=== PATIENT | female | born 1970 | race Caucasian/White ===

== ENCOUNTER 2018-09-05 23:57 | Emergency (ER) | payer OTHER, SELFPAY ==
[2018-09-05 23:59] VITALS: BP 176/81; PULSE 74; RESP 18; TEMP 36.4; O2SAT 100
--- NOTE | 2018-09-06 00:03 | DI.CT_ITS ---
SYMPTOM/DIAGNOSIS: LT SIDED FLANK PAIN, ? KIDNEY STONE VS PYELO RENAL COLIC CT: Routine examination was performed. Comparison is made with 01/07/17 and 12/27/16. The visualized lung bases are clear. The lack of IV contrast does limit evaluation of the abdominal and pelvic organs. There is diffuse decreased attenuation of the liver consistent with fatty infiltration. No discrete hepatic mass is seen on this noncontrast examination. There is focal fatty sparing in the gallbladder fossa. The gallbladder, bile ducts, pancreas, spleen and adrenal glands are unremarkable. The right kidney shows no evidence of nephrolithiasis, ureterolithiasis or hydronephrosis. There is a 5 mm. stone at the left ureterovesicular junction causing mild hydronephrosis. No left nephrolithiasis is seen. There is a cyst seen in the mid pole of the left kidney with tiny flecks of increased density. This is unchanged compared to the CT scans from 12/27/16 and 01/07/17. The urinary bladder is intact. The reproductive organs are unremarkable except for what appear to be uterine fibroids. There is diverticulosis of the colon but no evidence of acute diverticulitis. No evidence of bowel obstruction, inflammation or obstruction. There is a normal appendix present. Note is made of a 2.9 cm. left adnexal cyst, likely ovarian. The abdominal aorta is of normal caliber. No significant abdominal or pelvic adenopathy, ascites or pneumoperitoneum is present. Degenerative changes are seen in the spine. IMPRESSION: 5 mm. stone at the region of the left ureterovesicular junction causing mild hydronephrosis.
--- NOTE | 2018-09-06 00:06 | ED.GENADUL_ITS ---
Discharge Plan Disposition Patient Disposition: HOME Condition: Improving Discharge Details Chief Complaint: FlankPain Clinical Impression: Left nephrolithiasis Primary Care Provider: Shanel Morales ED Provider: Vanita Chapman Home Meds and New Rx's Prescriptions: New oxycodone 5 mg tablet 5 mg PO Q6H PRN (Reason: pain) Qty: 10 RF: 0 tamsulosin [Flomax] 0.4 mg capsule 0.4 mg PO DAILY 7 Days Qty: 7 RF: 0 Discharge Instructions Instructions: Kidney Stones (ED) Additional Instructions: Take the pain and nausea medication as needed and directed. Drink plenty of fluids. You will receive a call from care management regarding a follow-up appointment with urology Dr. Medrano. Return immediately to the emergency department any worsening or new concerning symptoms. Discharge Data Discharge Date/Time-TO BE ENTERED AT DEPARTURE: 09/06/18 01:40 Discharge Physician: Vanita Chapman Medical Decision Making 48-year-old female with a history of kidney stones and previous lithotripsy 10 years ago who presents with left flank pain and vomiting since 1 hour ago. Blood pressure hypertensive, remainder vitals within normal limits. Afebrile. No CVA tenderness. Abdomen soft and nontender. Patient appears nontoxic. Will place an IV, bolus IV fluids, labs, urinalysis, CT as well as Toradol and Zofran and will reassess. 0115 --labs and imaging reviewed. Normal white blood cell count renal function. Trace blood in urine but no evidence of infection. CT renal colic notes a 5 mm calculus in the left distal ureter at the level of the bladder producing mild hydronephrosis. Patient feels much better. She states Toradol helped much with her pain but now it is slightly returning to 2/10. Will give a dose of oxycodone and flomax. As patient is afebrile, normal white blood cell count, normal renal function and a 5 mm calculus, and pain is improved, patient is appropriate for discharge home and she does feel much better and is requesting to go home. Patient is followed by Dr. Medrano. Will place patient on care management list to arrange for a follow-up appointment with Dr. Medrano for reevaluation within the next week. 2 tabs of oxycodone and 2 tabs of Zofran given for home. Prescription for oxycodone and Flomax and strainer given for home. Patient was instructed to return here immediately if worse. Medical Records Medical records reviewed: Yes I reviewed the patient's medical records. Imaging Data Radiologic Study: Radiologist's impression: CT Abdomen and Pelvis Without Contrast EXAM DATE/TIME: 09/06/2018 12:06 AM FINDINGS: The lung bases are clear. There are degenerative changes of the spine. There is fatty infiltration of the liver. There is some focal fatty sparing about the gallbladder fossa. There is no liver mass. There is no intrahepatic biliary dilatation. No gallstones are seen within the gallbladder. The pancreas is unremarkable. The spleen is unremarkable. There is no adrenal mass. The right kidney is normal. The left kidney demonstrates mild hydronephrosis. There is a complex cyst within the midpole the left kidney with some peripheral calcification. No renal calculi are seen within the kidney. The left ureter is dilated. There is a 5 mm calculus in the distal ureter at the level of the bladder. The bladder is nondistended. The aorta is normal in caliber. The IVC is normal in caliber. There is no retroperitoneal adenopathy. There is no mesenteric adenopathy. The stomach is unremarkable. The small bowel loops in the upper abdomen are nondistended with no bowel wall thickening. Feces is seen throughout the colon. There is no thickening of the wall of the ascending, transverse or descending colons. There is scattered colonic diverticuli. Within the pelvis: A normal appendix is seen within the right lower quadrant. There appears to be a calcified uterine leiomyoma. There is a 2.9 cm left ovarian cyst. The right adnexa is unremarkable. There is no free fluid within the pelvis. There is no inguinal adenopathy. There is no pelvic adenopathy. There is sigmoid diverticulosis. IMPRESSION: 5 mm calculus in the left distal ureter at the level of the bladder producing mild hydronephrosis of the left kidney. Lab Data Lab results reviewed: Yes I reviewed the patient's lab results. Laboratory Tests Range/Units 09/06/18 09/06/18 09/06/18 00:01 00:01 00:04 WBC (4.4-10.8) k/cumm 10.29 RBC (4.00-5.20) m/cumm 4.88 Hgb (12.0-15.5) g/dL 14.1 Hct (36.0-46.0) % 41.7 MCV (80-95) fL 85.5 MCH (27.0-33.0) pg 28.9 MCHC (32.0-36.0) g/dL 33.8 RDW (11.7-14.6) % 13.4 Plt Count (130-400) x1000/uL 220 MPV (8.0-11.0) fL 10.4 Immature Gran % 0.3 Neutrophils % 47.8 Lymphocytes % 40.7 Monocytes % 9.6 Eosinophils % 1.4 Basophils % 0.2 Absolute Neutrophils (1.2-6.7) k/cumm 4.92 Absolute Lymphocytes (1.2-3.4) k/cumm 4.19 H Absolute Monocytes (0.11-0.7) k/cumm 0.99 H Absolute Eosinophils (0.0-0.7) k/cumm 0.14 Absolute Basophils (0.0-0.2) k/cumm 0.02 Sodium (136-145) mmol/L 145 Potassium (3.5-5.1) mmol/L 3.3 L Chloride (98-107) mmol/L 104 Carbon Dioxide (21.0-32.0) mmol/L 30.1 Anion Gap (3-11) mmol/L 10.9 BUN (7-18) mg/dL 11 Creatinine (0.55-1.02) mg/dL 0.74 Estimated GFR/1.73 m2 (mL/min/1.73m2) >= 60.00 Glucose (70-100) mg/dL 117 H Calcium (8.5-10.1) mg/dL 9.2 Total Bilirubin (0.2-1.0) mg/dL 0.3 AST (15-37) U/L 12 L ALT (12-78) U/L 29 Alkaline Phosphatase (46-116) U/L 110 Total Protein (6.4-8.2) g/dL 8.1 Albumin (3.4-5.0) g/dL 3.7 Lipase (73-393) U/L 136 Urine Color (Yellow) Yellow Urine Clarity Clear Urine pH (5-8) 7.5 Ur Specific [place] (1.005-1.025) 1.020 Urine Protein (Negative) mg/dL 100 H Urine Ketones (Negative) mg/dL Negative Urine Blood (Negative) Trace-intact H Urine Nitrite (Negative) Negative Urine Bilirubin (Negative) Negative Urine Urobilinogen (Up TO 0.2) EU/dL 1.0 H Ur Leukocyte Esterase (Negative) Negative Urine RBC (0-2) 0-2 Urine WBC (0-5) HPF 0-2 Ur Epithelial Cells (Negative) HPF Moderate Urine Crystals (Negative) HPF Moderate amorphous Urine Bacteria (Negative) HPF Negative Urine Casts (Negative) LPF Negative Urine Mucus (Negative) Negative Urine Other (Negative) Negative Ur Culture Indicated? No Urine Glucose (Negative) mg/dL 500 H HPI General Mode of arrival: ambulatory . Date/Time Provider Initiated Documentation: 09/06/18 00:03 . Limitations to Documentation: no limitations . Information obtained by: patient . HPI Narrative: Patient is a 48-year-old female with a history of kidney stones and previous lithotripsy 10 years ago who presents to the ED with a complaint of left flank pain and vomiting that started 1 hour ago prior to arrival. Denies any fever or urinary symptoms. Patient has not taken any medication for pain. Related Data Home Medications Medication Instructions Recorded Confirmed oxycodone 5 mg PO Q6H PRN #10 tab 09/06/18 tamsulosin [Flomax] 0.4 mg PO DAILY 7 Days #7 cap 09/06/18 Previous Rx's Medication Instructions Recorded oxycodone 5 mg PO Q6H PRN #10 tab 09/06/18 tamsulosin [Flomax] 0.4 mg PO DAILY 7 Days #7 cap 09/06/18 Allergies Allergy/AdvReac Type Severity Reaction Status Date / Time No Known Allergies Allergy Unverified 01/06/18 08:16 General Stated Complaint: FlankPain RY: 3 Review of Systems Review of Systems All systems reviewed & are unremarkable except as noted in HPI and below Constitutional Reports as per HPI, Denies chills and Denies fever(s) Eyes Denies blurry vision ENT Denies dizziness, Denies sore throat and Denies throat swelling Cardiovascular Denies chest pain and Denies dyspnea Respiratory Denies dyspnea Gastrointestinal Denies abdominal pain, Denies diarrhea and Reports vomiting Genitourinary Denies hematuria, Denies dysuria and Reports flank pain Musculoskeletal Denies back pain and Denies numbness Integumentary/Breasts Denies lesions and Denies rash Neurologic Denies dizziness and Denies numbness Allergic/Immunologic Denies throat swelling PFSH Diabetes (Chronic) Kidney stones (Chronic) Family History Mother Neoplasm Father Diabetes Essential hypertension Depression Heart disease Neoplasm Stroke Brother No problems noted. Grandfather No problems noted. Grandfather No problems noted. Grandmother No problems noted. Grandmother Essential hypertension Heart disease Stroke Son No problems noted. Son No problems noted. Daughter No problems noted. Hx of lithotripsy (Acute) HYSTERECTOMY (12/29/16) Family History Mother Neoplasm Father Diabetes Essential hypertension Depression Heart disease Neoplasm Stroke Brother No problems noted. Grandfather No problems noted. Grandfather No problems noted. Grandmother No problems noted. Grandmother Essential hypertension Heart disease Stroke Son No problems noted. Son No problems noted. Daughter No problems noted. Medical History Diabetes (Chronic) Kidney stones (Chronic) Social History Smoking/Tobacco Use Status: Former Tobacco Use Surgical History Hx of lithotripsy (Acute) HYSTERECTOMY (12/29/16) Social History Smoking/Tobacco Use Status: Former Tobacco Use Exam Const General: cooperative, healthy appearing and no acute distress [facility] Head: normal to inspection Face and sinus: normal facial exam Eyes General: appearance normal, both eyes and all related structures Neck Neck: normal visual inspection Lymphatic: no lymphadenopathy noted Resp Effort & Inspection: normal respiratory effort and able to speak in complete sentences Auscultation: clear to auscultation bilaterally Cardio Rate: regular rate Rhythm: regular rhythm GI Inspection: normal to inspection Palpation: soft, not firm, not rigid and nontender Auscultation: normal bowel sounds Back/Spine/Pelvis Back: no CVA tenderness Thoracic/Lumbar Spine: thoracic and lumbar spine normal to inspection Pelvis: no pain with anterior-posterior compression Skin General skin exam: no rashes or lesions noted Neuro General: alert, awake and oriented x3 Cognition: normal cognition Speech: speech normal Motor: muscle tone normal throughout Sensory Exam: no sensory deficits noted Extrem General: normal to inspection, full ROM and no edema Psych Appearance: grossly normal Mental Status: mental status grossly normal Speech and Movement: speech and movement normal Affect: normal affect Course Vital Signs Temperature 97.5 F L 09/05/18 23:59 Pulse 74 09/05/18 23:59 Respiratory Rate 18 09/05/18 23:59 Blood Pressure 176/81 H 09/05/18 23:59 Pulse Oximetry 100 09/05/18 23:59 Temperature 97.5 F L 09/05/18 23:59 Temperature Source Temporal Artery Scan 09/05/18 23:59 Pulse 74 09/05/18 23:59 Respiratory Rate 18 09/05/18 23:59 Respiratory Effort 09/05/18 23:59 Blood Pressure 176/81 H 09/05/18 23:59 Blood Pressure Position Sitting 09/05/18 23:59 Pulse Oximetry 100 09/05/18 23:59 Oxygen Delivery Method Room Air 09/05/18 23:59 Oxygen Flow Rate 0 09/05/18 23:59
[2018-09-06] MEDS: Ketorolac 30 MG/ML VIAL IVP (00:16)
[2018-09-06] MEDS: Normal Saline 1,000 ML 1000 ML IV (00:16)
[2018-09-06] MEDS: Ondansetron 4 MG/2 ML VIAL IVP (00:17)
[2018-09-06 00:18] LABS: Bilirubin Negative (Negative); Blood Trace-intact (Negative); Clarity Clear; Glucose 500 mg/dL (Negative); Ketones Negative (Negative); Leukocyte Esterase Negative (Negative); Nitrite Negative (Negative); pH 7.5 (5-8)
[2018-09-06 00:18] LABS: Abs Immature Grans 0.03 k/cumm (0.0-0.09); Absolute Basophil Count 0.02 k/cumm (0.0-0.2); Absolute Eosinophil Count 0.14 k/cumm (0.0-0.7); Absolute Lymphocyte Count 4.19 k/cumm (1.2-3.4); Absolute Monocyte Count 0.99 k/cumm (0.11-0.7); Absolute Neutrophil Count 4.92 k/cumm (1.2-6.7); Basophils % 0.2; Eosinophils % 1.4; HCT 41.7 % (36.0-46.0); HGB 14.1 g/dL (12.0-15.5); Immature Grans % 0.3; Lymphocytes % 40.7; Mean Corp. HGB Concentration 33.8 g/dL (32.0-36.0); Mean Corpuscular Hemoglobin 28.9 pg (27.0-33.0); Mean Corpuscular Volume 85.5 fL (80-95); Mean Platelet Volume 10.4 fL (8.0-11.0); Monocytes % 9.6; Neutrophils % 47.8; Platelet Count 220 x1000/uL (130-400); RBC 4.88 m/cumm (4.00-5.20); RBC Distribution Width 13.4 % (11.7-14.6); White Blood Cell Count 10.29 k/cumm (4.4-10.8)
[2018-09-06 00:25] LABS: Bacteria Negative HPF (Negative); Epithelial Cells Moderate HPF (Negative); Other Cells Negative (Negative); RBC 0-2 (0-2); WBC 0-2 HPF (0-5)
[2018-09-06 00:26] LABS: C & S Indicated? No; Casts Negative LPF (Negative); Crystals Moderate Amorphous HPF (Negative); Mucus Negative (Negative)
[2018-09-06 00:31] LABS: ALT 29 U/L (12-78); AST 12 U/L (15-37); Albumin 3.7 g/dL (3.4-5.0); Alkaline Phosphatase 110 U/L (46-116); Anion Gap 10.9 mmol/L (3-11); BUN 11 mg/dL (7-18); Bilirubin, Total 0.3 mg/dL (0.2-1.0); CO2 30.1 mmol/L (21.0-32.0); CREATININE 0.74 mg/dL (0.55-1.02); Calcium 9.2 mg/dL (8.5-10.1); Chloride 104 mmol/L (98-107); Glucose 117 mg/dL (70-100); Lipase 136 U/L (73-393); Potassium 3.3 mmol/L (3.5-5.1); Sodium 145 mmol/L (136-145); Total Protein 8.1 g/dL (6.4-8.2)
--- NOTE | 2018-09-06 01:00 | DI.VRAD_ITS ---
EXAM: CT Abdomen and Pelvis Without Contrast EXAM DATE/TIME: 09/06/2018 12:06 AM CLINICAL HISTORY: 48 years old, female; Pain; Other: Lt sided flank pain R/O kidney stone vs pyelo TECHNIQUE: Axial computed tomography images of the abdomen and pelvis without contrast. Coronal and sagittal reformatted images were created and reviewed. COMPARISON: CT ABD PELVIS WITH CONTRAST 01/07/2017 2:23 PM FINDINGS: The lung bases are clear. There are degenerative changes of the spine. There is fatty infiltration of the liver. There is some focal fatty sparing about the gallbladder fossa. There is no liver mass. There is no intrahepatic biliary dilatation. No gallstones are seen within the gallbladder. The pancreas is unremarkable. The spleen is unremarkable. There is no adrenal mass. The right kidney is normal. The left kidney demonstrates mild hydronephrosis. There is a complex cyst within the midpole the left kidney with some peripheral calcification. No renal calculi are seen within the kidney. The left ureter is dilated. There is a 5 mm calculus in the distal ureter at the level of the bladder. The bladder is nondistended. The aorta is normal in caliber. The IVC is normal in caliber. There is no retroperitoneal adenopathy. There is no mesenteric adenopathy. The stomach is unremarkable. The small bowel loops in the upper abdomen are nondistended with no bowel wall thickening. Feces is seen throughout the colon. There is no thickening of the wall of the ascending, transverse or descending colons. There is scattered colonic diverticuli. Within the pelvis: A normal appendix is seen within the right lower quadrant. There appears to be a calcified uterine leiomyoma. There is a 2.9 cm left ovarian cyst. The right adnexa is unremarkable. There is no free fluid within the pelvis. There is no inguinal adenopathy. There is no pelvic adenopathy. There is sigmoid diverticulosis. IMPRESSION: 5 mm calculus in the left distal ureter at the level of the bladder producing mild hydronephrosis of the left kidney. Dictated and Authenticated by: Brandon Cabrera MD. Ordering:ZOEY ABREU MD
[2018-09-06] MEDS: Tamsulosin 0.4 MG CAPCR PO (01:13)
[2018-09-06 01:15] VITALS: BP 170/71; PULSE 68; RESP 18; TEMP 37; O2SAT 100
[2018-09-06] MEDS: oxyCODONE 5 MG TAB PO (01:37)
[2018-09-06] MEDS: oxyCODONE 5 MG TAB 10 MG PO (01:37)
[2018-09-06] MEDS: Ondansetron O.D.T. 4 MG TABEF 8 MG PO (01:37)
== END 2018-09-06 01:40 | disposition home or self-care (01) ==
PROVIDERS: Emergency Provider Physician Assistant
DX: N13.2 Hydronephrosis with renal and ureteral calculous obstruction (principal); R11.2 Nausea with vomiting, unspecified; Z87.442 Personal history of urinary calculi; E11.9 Type 2 diabetes mellitus without complications
CPT/HCPCS: 36415; 80053; 83690; 96361; 96374; 96375; 99284; 74176; 81003; 81015; 85025; 99285; J1885; J2405

== ENCOUNTER 2018-09-27 16:55 | Outpatient (REF) | payer OTHER, SELFPAY ==
[2018-09-30 15:13] LABS: Source: Kidney
== END 2018-09-27 17:15 ==
LOC: LBN 16:55
PROVIDERS: Visit Provider Nurse Practitioner Gerontology
DX: N20.0 Calculus of kidney (principal)
CPT/HCPCS: 82365

== ENCOUNTER 2019-01-02 00:34 | Outpatient (CLI) | payer OTHER, SELFPAY ==
--- NOTE | 2019-01-02 14:15 | DI.US_ITS ---
SYMPTOMS/DIAGNOSIS: LEFT RENAL CYST, N28.1, KIDNEY STONE ON LEFT SIDE, N20.0 RENAL ULTRASOUND: Routine examination was performed. Comparison examination is 01/06/18. The right kidney measures 11.9 cm long. No renal mass, calculus or obstruction is seen. The left kidney measures 10.9 cm long. There is a cyst again seen in the left kidney. It measures 2.1 x 1.8 x 1.9 cm. This is unchanged compared to the prior examination. Internal septations are again noted and unchanged. No internal blood flow is appreciated. There is a 4 mm echogenic focus in the mid pole of the left kidney, which appears stable. No hydronephrosis is seen. The prevoid urinary bladder volume is 113 cc. The bladder wall is smooth. No intraluminal mass is seen. Both ureteral jets were visualized. The bladder completely emptied upon voiding. IMPRESSION: Stable left renal cyst and left renal echogenic focus, which may represent a nonobstructing stone. Overall no change in appearance of the renal ultrasound compared to 01/06/18.
== END 2019-01-02 00:54 ==
PROVIDERS: Visit Provider Urology
DX: N20.0 Calculus of kidney; N28.1 Cyst of kidney, acquired
CPT/HCPCS: 76770

== ENCOUNTER 2019-07-03 11:46 | Outpatient (CLI) | payer OTHER, SELFPAY ==
[2019-07-03 13:24] LABS: Hemoglobin A1C 6.1 % (4.5-6.2)
[2019-07-03 13:40] LABS: COMMENT (LAB VIEW ONLY) 100.16 mg/dL; Microalb ug/mg Crea 11.4 ug/mg Cr
[2019-07-03 15:06] LABS: ALT 30 U/L (14-59); AST 15 U/L (15-37); Alkaline Phosphatase 110 U/L (46-116); Anion Gap 11.2 mmol/L (3-11); BUN 13 mg/dL (7-18); Bilirubin, Total 0.4 mg/dL (0.2-1.0); CO2 27.8 mmol/L (21.0-32.0); CREATININE 0.73 mg/dL (0.55-1.02); Calcium 9.4 mg/dL (8.5-10.1); Calculated LDL 126 mg/dL; Chloride 100 mmol/L (98-107); Cholesterol 196 mg/dL (50-200); Glucose 85 mg/dL (70-100); HDL Cholesterol 42 mg/dL (40-60); Potassium 3.8 mmol/L (3.5-5.1); Sodium 139 mmol/L (136-145); Total Protein 8.1 g/dL (6.4-8.2); Triglyceride 141 mg/dL (30-150)
== END 2019-07-03 12:06 ==
DX: E11.9 Type 2 diabetes mellitus without complications (principal); I10 Essential (primary) hypertension; R63.8 Other symptoms and signs concerning food and fluid intake; Z00.00 Encounter for general adult medical examination without abnormal findings; Z13.220 Encounter for screening for lipoid disorders; E03.9 Hypothyroidism, unspecified
CPT/HCPCS: 36415; 80053; 80061; 82043; 82570; 83036

== ENCOUNTER 2020-01-29 01:55 | Outpatient (CLI) | payer SELFPAY ==
--- NOTE | 2020-01-29 06:15 | DI.US_ITS ---
EXAM: US RENAL CLINICAL HISTORY: compare yearly exams, F/U LT RENAL CYST AND ECHOGENIC FOCUS, ? STONE. TECHNIQUE: Mena scale, color and spectral Doppler were used. PELVIS TRANSVAG from 10/21/2011 PELVIS TRANSVAG from 11/24/2016 CT renal colic wo from 09/06/2018 FINDINGS: Renal size in cm: Right: 13.5 left: 12.5 Echogenicity: Normal. Parenchymal thickness: Normal. Hydronephrosis: No Cyst or mass: Right kidney: No Left kidney: There is a stable 1.9 centimeter cyst near the lower pole which again shows a septation and peripheral calcification. A 4 millimeter echogenic focus is again seen in the midportion which c ould represent a small stone versus artifact. Bladder:Normal Prevoid vol:100 Postvoid vol:0 Both ureteral jets were visualized. IMPRESSION: Small septated cyst with peripheral calcification of the left kidney appears stable compared with ex ams back to 2011. DATA REPOSITORY:
== END 2020-01-29 02:15 ==
PROVIDERS: PCP Nurse Practitioner; Visit Provider Urology
DX: N28.1 Cyst of kidney, acquired (principal)
CPT/HCPCS: 76770

== ENCOUNTER 2020-03-17 11:24 | Outpatient (CLI) | payer SELFPAY ==
[2020-03-18 01:41] LABS: COVID-19 RT-PCR UVMMC Result Negative (Negative)
== END 2020-03-17 11:44 ==
PROVIDERS: PCP Nurse Practitioner; Visit Provider Nurse Practitioner
DX: R50.9 Fever, unspecified (principal); Z03.818 Encounter for observation for suspected exposure to other biological agents ruled out
CPT/HCPCS: U0003

== ENCOUNTER 2020-09-10 19:20 | Outpatient (CLI) | payer OTHER, SELFPAY ==
[2020-09-10 13:50] LABS: HCT 42.2 % (36.0-46.0); HGB 13.9 g/dL (11.2-15.7); MCH 28.4 pg (27.0-33.0); MCHC 32.9 % (32.0-36.0); MCV 86.3 fL (80-95); MPV 10.2 fL (8.0-11.0); Platelet Count 243 10^3/uL (130-400); RBC 4.89 10^6/uL (3.93-5.22); RDW 12.3 % (11.7-14.6); RDW-SD 38.5 fL; WBC 9.63 10^3/uL (4.4-10.8)
[2020-09-10 14:05] LABS: Hemoglobin A1C 6.4 % (<5.7)
[2020-09-10 14:43] LABS: ALT 35 U/L (14-59); AST 13 U/L (15-37); Albumin 3.9 g/dL (3.4-5.0); Alkaline Phosphatase 122 U/L (46-116); Anion Gap 7.3 mmol/L (3-11); BUN 10 mg/dL (7-18); Bilirubin, Total 0.3 mg/dL (0.2-1.0); CO2 28.7 mmol/L (21.0-32.0); CREATININE 0.78 mg/dL (0.55-1.02); Calcium 8.8 mg/dL (8.5-10.1); Chloride 102 mmol/L (98-107); Glucose 178 mg/dL (74-106); Potassium 3.9 mmol/L (3.5-5.1); Sodium 138 mmol/L (136-145); TSH 0.72 uIU/mL (0.36-3.74); Total Protein 7.7 g/dL (6.4-8.2)
== END 2020-09-10 19:40 ==
PROVIDERS: PCP Nurse Practitioner; Visit Provider Nurse Practitioner
DX: R10.9 Unspecified abdominal pain (principal); R14.0 Abdominal distension (gaseous); E11.9 Type 2 diabetes mellitus without complications; L65.9 Nonscarring hair loss, unspecified
CPT/HCPCS: 36415; 80053; 85027; 83036; 84443

== ENCOUNTER 2020-10-16 04:26 | Outpatient (CLI) | payer OTHER, SELFPAY ==
[2020-10-17 22:11] LABS: COVID-19 RT-PCR Result NEGATIVE (Negative)
== END 2020-10-16 04:46 ==
PROVIDERS: PCP Nurse Practitioner; Visit Provider Surgery
DX: Z11.52 Encounter for screening for COVID-19 (principal); Z01.818 Encounter for other preprocedural examination
CPT/HCPCS: U0003

== ENCOUNTER 2020-10-20 07:03 | Day surgery (SDC) | payer OTHER, SELFPAY ==
[2020-10-20 07:06] VITALS: BP 144/85; PULSE 88; RESP 18; TEMP 36.6; O2SAT 97
--- NOTE | 2020-10-20 07:11 | W.PM.ENDDOP ---
Date of service: 10/20/20 Time of Service: 08:15 Endoscopy Report DATE OF PROCEDURE: 10/20/20 PRE-OP DIAGNOSIS: Bloating, change in bowel habits POST-OP DIAGNOSIS: same (gastritis, esophagitis, cordova-diverticulosis) PROCEDURE: 1. EGD with biopsies 2. Colonoscopy SURGEON: Inge Machado ANESTHESIA: other (General/ASA 2/Krista Barski, [employer]) ESTIMATED BLOOD LOSS: 3 PATHOLOGY: other (Duodenum bx, gastric antrum bx, GE junction bx) COMPLICATIONS: None DISPOSITION: same day INDICATIONS: Mrs. Leavitt is a pleasant 50-year-old female who has developed changes in bowel habits. Her BMs go from normal to pencil thin to diarrhea. She has not noted any particular foods that make it worse. She also complains of bloating with everything she eats. She has some mild heartburn which she takes Tums for. She has a family history of colitis in her brother and father. She does not recall whether it is ulcerative colitis or Crohn's. She has not had any weight loss. She does have some abdominal pain which is the in the lower abdomen. She will normally get crampy burning pain which is followed by the pencil thin stools. She has no pain when she has the diarrhea. Her symptoms of bloating could be related to stomach issues like gastritis, gastric ulcers or duodenitis. She does have some mild heartburn at times as well. Her changes in bowel habits could be due to food intolerance as well as inflammatory bowel disease although she has no blood in her diarrhea is not constant. She does not have more than 6-8 bowel movements a day. With her family history it is worthwhile checking out though. I recommended an upper endoscopy as well as a colonoscopy. We reviewed both procedures in detail. I also went over the risks and the benefits. We discussed Covid testing prior to the procedure as well as quarantine requirements. Patient wishes to proceed with upper and lower endoscopy. Risks, benefits and complications have been reviewed. Complications include but are not limited to bleeding, pain, perforation, missed small lesion/polyp, sore throat, aspiration and adverse reaction to the medications. Questions were entertained and answered to their satisfaction and they wished to proceed. No guarantees were given or implied. Risks, benefits and complications have been reviewed. Complications include but are not limited to bleeding, pain, perforation, sore throat, aspiration, and adverse reaction to the medications. Questions were entertained and answered to their satisfaction and they wished to proceed. No guarantees were given or implied. COVID-19 testing explained to the patient. Reason for test reviewed. Quarantine per state requirements reviewed with patient. Patient understands and agrees to testing. Plan: Colonoscopy and EGD under sedation PREP: Miralax/Dulcolax PROCEDURE START TIME: 08:15 PROCEDURE END TIME: 08:55 COLONOSCOPY RETRACTION TIME: 13 minutes FINDINGS: mild duodenitis, gastritis and esophagitis Cordova-diverticulosis PROCEDURE DESCRIPTION: After informed consent was obtained the patient was take to the procedure room and placed in a supine position. Monitors were applied and a time out was done. The patients name, date of , procedure type, allergies to medications and metal in their body was reviewed. A bite block was placed and the patient was sedated. Once sedated and comfortable the gastroscope was advanced through the oropharynx which was grossly normal into the esophagus. The proximal and mid-esophagus were normal. There was normal peristalsis noted. In the distal esophagus there was moderate inflammation noted. The scope was advanced into the stomach and through the pylorus into the 3rd portion of the duodenum. The duodenum was noted to have mild inflammation. Biopsies were done to rule out Celiac. The scope was retracted back into the stomach. There was mild inflammation of the antrum and body. Biopsies were done to rule out H. pylori. There were no ulcers. The scope was retro-flexed. The cardia and fundus were noted to be normal. There was no hiatal hernia noted. The scope was retracted back into the esophagus and biopsies were done of the GE junction to rule out Davila's. The Z line was regular. The GE junction was at 38 cm. While the patient was still sedated they were placed in a left decubitous position. A rectal exam was done. External exam was normal. Internal exam revealed a slightly decreased sphincter tone and no palpable masses. The scope was then introduced and retro-flexed. No internal hemorrhoids were identified. The scope was then advanced to the cecum with some difficulty due to the amount of diverticula. The TI and appendiceal orifice were identified. The prep was adequate. The scope was then slowly retracted over 13 minutes back into the rectum. There were no polyps. There was moderate cordova-diverticulosis. The scope was removed and the patient was woken up and taken back to Same day surgery in stable condition. The patient tolerated the procedure well and there were no immediate complications. Follow up: 2 weeks in the office. 10 years for the next colonoscopy.
--- NOTE | 2020-10-20 07:13 | PDOC.DSDIS_ITS ---
Discharge Plan Disposition Patient Disposition: HOME Condition: Good Discharge Details Reason For Visit: colo/egd Attending Provider: Inge Machado Primary Care Provider: Janelle Lowery Home Meds and New Rx's Prescriptions: Continued amlodipine 5 mg tablet 5 mg PO DAILY Qty: 90 RF: 4 chlorthalidone 25 mg tablet 25 mg PO DAILY Qty: 40 RF: 0 Discharge Instructions Instructions: Gastritis (DC), Diet for Stomach Ulcers and Gastritis (ED), Esophagitis (DC), Diverticulosis (DC) Additional Instructions: Findings: mild inflammation of the stomach and esophagus Diverticulosis Follow up: 2 weeks in the office Please call if you develop: fevers >101.5 Nausea or Vomiting Abdominal pain that is not transient DAY SURGERY UNIT POST ENDOSCOPY INSTRUCTIONS 1. Because there will be medication in your system for the next 24 hours, you may feel a little sleepy. Your coordination will be affected. Therefore: a. Do not drive or operate dangerous equipment for 24 hours. b. Do not drink alcohol beverages for 24 hours (not even beer). c. Plan to go home and rest for the day. 2. Generally there are no restrictions on your activity after a day or so has gone by, but you may feel a bit fatigued for a few days. 3 After you arrive home you may have a light meal and return to a normal diet as you can tolerate it without feeling sick to your stomach. 4. After surgery, you may feel pain or discomfort. This should be only transient, but if it persists please contact your doctor. 5. If there are any questions regarding the findings of your procedure, please feel free to contact your doctor. 6. If you are unable to contact your doctor with a problem, contact the hospital at [phone]. 7. Continue all your regular medications unless directed otherwise. I understand the above instructions and have no questions. Signature of Patient or Responsible Adult Escort Date/Time Name of Responsible Adult Escort Signature of Nurse Date/Time Referrals: Inge Machado MD [ [facility] STAFF PHYSICIAN] - 12/02/20 8:00 am Activity:: Activity as Tolerated Diet:: High Fiber Discharge Orders Discharge Orders: Discharge Order (Routine); Ordered 10/20/20 Ordered By: Inge Machado
[2020-10-20] MEDS: Lactated Ringers 1,000 ML 80 ML IV (07:40)
--- NOTE | 2020-10-20 08:17 | STOM_PTH ---
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
[2020-10-20 09:45] VITALS: BP 140/77; PULSE 71; RESP 17; TEMP 36.4; O2SAT 98
== END 2020-10-20 10:08 | disposition home or self-care (01) ==
PROVIDERS: PCP Nurse Practitioner; Visit Provider Surgery
PROC: (CPT 43239; principal; 2020-10-20 08:30)
DX: R14.0 Abdominal distension (gaseous) (principal); R19.4 Change in bowel habit; R12 Heartburn; Z83.79 Family history of other diseases of the digestive system; K29.80 Duodenitis without bleeding; K57.30 Diverticulosis of large intestine without perforation or abscess without bleeding; K29.70 Gastritis, unspecified, without bleeding; K21.00 Gastro-esophageal reflux disease with esophagitis, without bleeding; E11.9 Type 2 diabetes mellitus without complications
CPT/HCPCS: 43239; 45378; 88305; J2001

== ENCOUNTER 2020-11-02 09:34 | Outpatient (REF) | payer OTHER, SELFPAY ==
[2020-11-02 10:45] LABS: ALT 45 U/L (14-59); AST 20 U/L (15-37); Albumin 3.9 g/dL (3.4-5.0); Alkaline Phosphatase 153 U/L (46-116); Bilirubin, Total 0.4 mg/dL (0.2-1.0); GGT 66 U/L (5-55); Total Protein 8.1 g/dL (6.4-8.2)
[2020-11-02 10:57] LABS: Bilirubin, Direct 0.08 mg/dL (0.00-0.20)
[2020-11-05 10:23] LABS: Hepatitis C Ab w Rflx HCV PCR Negative (Negative)
== END 2020-11-02 09:35 | disposition home or self-care (01) ==
LOC: LBN 09:34
PROVIDERS: PCP Nurse Practitioner; Visit Provider Nurse Practitioner
DX: R74.8 Abnormal levels of other serum enzymes (principal)
CPT/HCPCS: 36415; 80076; 86803; 82977

== ENCOUNTER 2020-11-05 02:21 | Outpatient (CLI) | payer OTHER, SELFPAY ==
--- NOTE | 2020-11-05 06:30 | DI.US_ITS ---
EXAM: US ABDOMEN CLINICAL HISTORY: elevated LFT's,r79.89 TECHNIQUE: Ultrasound abdomen performed using standard protocol. COMPARISON: CT ABD PELVIS WITH CONTRAST from 01/07/2017 CT ABD PELVIS WITH CONTRAST from 01/07/[address] renal colic wo from 09/06/2018 FINDINGS: Exam is limited by patient body habitus. LIVER: Mildly enlarged at 20 centimeters. Increased echogenicity and decreased through transmission consistent with moderate to severe hepatic steatosis. Posterior portions of the liver are not well s een. No focal liver lesions are seen.. GALLBLADDER: No evidence of cholelithiasis. No evidence of wall thickening. No pericholecystic fluid identified. REDDY'S SIGN: Negative. BILIARY SYSTEM: No intrahepatic or extrahepatic biliary ductal dilation. KIDNEYS: Kidneys are symmetric in size. No evidence of hydronephrosis. Stable cyst near the lower po le of the left kidney with peripheral calcification. Tiny cyst upper pole right kidney. Question of a 7 millimeter stone versus artifact near the upper pole of the right kidney. PANCREAS: Normal where visualized. SPLEEN: Not enlarged. ABDOMINAL AORTA AND IVC: Visualized portions normal caliber. ASCITES: None seen. IMPRESSION: Moderate to severe pathic steatosis. No focal liver lesions are visible. Unremarkable gallbladder. DATA REPOSITORY:
== END 2020-11-05 02:22 ==
PROVIDERS: PCP Nurse Practitioner; Visit Provider Nurse Practitioner
DX: K76.0 Fatty (change of) liver, not elsewhere classified (principal); R79.89 Other specified abnormal findings of blood chemistry
CPT/HCPCS: 76700

== ENCOUNTER 2020-11-25 02:01 | Outpatient (CLI) | payer OTHER, SELFPAY ==
--- NOTE | 2020-11-25 14:33 | DI.MAMMO_ITS ---
EXAM: MAMMO SCREENING CLINICAL HISTORY: screening,z12.39 TECHNIQUE: Mammograms were interpreted according to the usual protocol including computer analysis w [employer] CAD system, tomosynthesis and C-view imaging. COMPARISON: FINDINGS: The breasts are heterogeneously dense. No dominant mass is identified in either breast. There are f ew microcalcifications seen bilaterally, these are benign in appearance and unchanged from prior stud y November 2016. No other significant change identified. IMPRESSION: No specific evidence of malignancy at this time. Routine screening examinations are suggested at yea rly intervals in this age group according to the ACS ACR guidelines. BI-RADS Category 1 - Negative Breast Density - Category C - Heterogeneously dense
== END 2020-11-25 02:21 ==
PROVIDERS: PCP Nurse Practitioner; Visit Provider Nurse Practitioner
DX: Z12.31 Encounter for screening mammogram for malignant neoplasm of breast (principal)
CPT/HCPCS: 77063; 77067

== ENCOUNTER 2021-02-11 09:39 | Outpatient (REF) | payer OTHER, SELFPAY ==
[2021-02-11 12:05] LABS: ALT 59 U/L (14-59); AST 25 U/L (15-37); Albumin 3.9 g/dL (3.4-5.0); Alkaline Phosphatase 140 U/L (46-116); Bilirubin, Direct 0.1 mg/dL (0.0-0.2); Bilirubin, Total 0.4 mg/dL (0.2-1.0); Hemoglobin A1C 8.1 % (<5.7); Total Protein 7.9 g/dL (6.4-8.2)
== END 2021-02-11 09:40 | disposition home or self-care (01) ==
LOC: LBN 09:39
PROVIDERS: PCP Nurse Practitioner; Visit Provider Nurse Practitioner
DX: E11.9 Type 2 diabetes mellitus without complications (principal); R79.89 Other specified abnormal findings of blood chemistry; R94.5 Abnormal results of liver function studies
CPT/HCPCS: 36415; 80076; 83036

== ENCOUNTER 2021-05-15 10:45 | Outpatient (CLI) | payer OTHER, SELFPAY ==
[2021-05-15 11:07] LABS: Hemoglobin A1C 7.1 % (<5.7)
[2021-05-15 11:55] LABS: Alkaline Phosphatase 119 U/L (46-116)
== END 2021-05-15 10:46 | disposition home or self-care (01) ==
LOC: LBO 10:47
PROVIDERS: PCP Nurse Practitioner; Visit Provider Nurse Practitioner
DX: E11.9 Type 2 diabetes mellitus without complications (principal); R79.89 Other specified abnormal findings of blood chemistry
CPT/HCPCS: 36415; 83036; 84075

== ENCOUNTER 2021-08-17 10:15 | Outpatient (CLI) | payer OTHER, SELFPAY ==
[2021-08-17 13:29] LABS: Source Nasal/Nares
[2021-08-17 17:39] LABS: COVID-19 PCR Negative (Negative)
== END 2021-08-17 10:16 | disposition home or self-care (01) ==
LOC: LBO 10:17
PROVIDERS: PCP Nurse Practitioner; Visit Provider Family Medicine
DX: Z20.822 Contact with and (suspected) exposure to COVID-19 (principal)
CPT/HCPCS: 87635

== ENCOUNTER 2021-09-02 16:04 | Outpatient (REF) | payer OTHER, SELFPAY ==
[2021-09-02 19:14] LABS: COVID-19 RT-PCR UVMMC Result Negative (Negative)
== END 2021-09-02 16:05 | disposition home or self-care (01) ==
LOC: LBN 16:04
PROVIDERS: PCP Nurse Practitioner; Visit Provider Nurse Practitioner Family
DX: Z20.822 Contact with and (suspected) exposure to COVID-19 (principal)
CPT/HCPCS: U0003

== ENCOUNTER 2021-09-10 19:08 | Outpatient (REF) | payer OTHER, SELFPAY ==
[2021-09-11 02:06] LABS: COVID-19 RT-PCR UVMMC Result Negative (Negative)
== END 2021-09-10 19:09 | disposition home or self-care (01) ==
LOC: LBN 19:08
PROVIDERS: PCP Nurse Practitioner; Visit Provider Nurse Practitioner Family
DX: Z20.822 Contact with and (suspected) exposure to COVID-19 (principal)
CPT/HCPCS: U0003

== ENCOUNTER 2021-11-11 14:46 | Outpatient (REF) | payer OTHER, SELFPAY ==
[2021-11-11 09:38] LABS: Hemoglobin A1C 8.5 % (<5.7)
[2021-11-11 10:27] LABS: COMMENT (LAB VIEW ONLY) 194.63 mg/dL; CREATININE 0.8 mg/dL (0.55-1.02); Microalb ug/mg Crea 12.2 ug/mg Cr; Potassium 3.3 mmol/L (3.5-5.1)
== END 2021-11-11 14:47 | disposition home or self-care (01) ==
LOC: LBO 14:46
PROVIDERS: PCP Nurse Practitioner; Visit Provider Nurse Practitioner
DX: E11.9 Type 2 diabetes mellitus without complications (principal); I10 Essential (primary) hypertension
CPT/HCPCS: 36415; 82043; 82565; 82570; 83036; 84132

== ENCOUNTER 2021-12-08 19:10 | Outpatient (REF) | payer OTHER, SELFPAY ==
[2021-12-08 21:02] LABS: COVID-19 RT-PCR UVMMC Result Negative (Negative)
== END 2021-12-08 19:11 | disposition home or self-care (01) ==
LOC: LBN 19:10
PROVIDERS: PCP Nurse Practitioner; Visit Provider Nurse Practitioner Family
DX: Z20.822 Contact with and (suspected) exposure to COVID-19 (principal)
CPT/HCPCS: U0003

== ENCOUNTER 2022-03-05 19:45 | Outpatient (CLI) | payer OTHER, SELFPAY | END 2022-03-05 19:46 | disposition home or self-care (01) | LOC: LBO 19:47 | PROVIDERS: PCP Nurse Practitioner; Visit Provider Nurse Practitioner | DX: E11.9 Type 2 diabetes mellitus without complications (principal) | CPT/HCPCS: 36415; 83036 ==

== ENCOUNTER 2022-11-03 13:14 | Outpatient (CLI) | payer OTHER, SELFPAY ==
[2022-11-03 10:25] LABS: CREATININE 0.9 mg/dL (0.55-1.02); Estimated GFR 77.88 (mL/min/1.73m2); Potassium 3.9 mmol/L (3.5-5.1)
== END 2022-11-03 13:15 | disposition home or self-care (01) ==
LOC: LBO 13:14
PROVIDERS: PCP Nurse Practitioner Family; Visit Provider Family Medicine
DX: I10 Essential (primary) hypertension (principal)
CPT/HCPCS: 36415; 82565; 84132

== ENCOUNTER 2022-11-25 02:02 | Outpatient (CLI) | payer OTHER, SELFPAY ==
--- NOTE | 2022-11-25 08:47 | DI.MAMMO_ITS ---
Exam(s) MAMMO SCREENING EXAM: MAMMO SCREENING CLINICAL HISTORY: screening,z12.39 TECHNIQUE: Bilateral full field digital CC and MLO mammographic images were obtained with 3D tomosyn thesis and utilizing computer aided detection (CAD). COMPARISON: Available for comparison. FINDINGS: Masses/Architectural Distortion: None seen. Microcalcifications: No suspicious pleomorphic-type are seen. Skin Thickening/Nipple Retraction: None. IMPRESSION: 1. No significant interval change with no specific features of malignancy noted. 2. Unless there is more urgent need, screening mammography is recommended, as per [employer] guidelines. BI-RADS Category 1 - Negative Breast Density - Category C - Heterogeneously dense Breast density category C or D implies that the patient has dense breast tissue. Dense breast tissue is very common and is not abnormal but dense breast tissue can make it harder to find cancer on a ma mmogram. Also, dense breast tissue may increase their breast cancer risk. This information about the result of the mammogram report was provided to the patient to raise their awareness. Use this report when you speak with the patient about their risks for breast cancer, which includes their family hist ory. At that time, you may recommend for more screening tests (Ultrasound or MRI) as they might be us eful based on their risk. A negative radiographic report should not delay biopsy if a dominant or clinically suspicious mass is present. Up to ten percent of cancers are not identified on mammography. A negative report may reinforce clinical impression. Adenosis and dense breasts may obscure an underlying neoplasm. False positive reports average 6 to 10%. Patient will receive a letter notifying them of these results.
== END 2022-11-25 02:22 ==
LOC: DI 02:02
PROVIDERS: PCP Nurse Practitioner Family; Visit Provider Nurse Practitioner Family
DX: Z12.31 Encounter for screening mammogram for malignant neoplasm of breast (principal)
CPT/HCPCS: 77063; 77067

== ENCOUNTER 2023-11-22 07:22 | Outpatient (CLI) | payer OTHER, SELFPAY ==
[2023-11-22 08:51] LABS: HCT 45.1 % (36.0-46.0); HGB 14.8 g/dL (11.2-15.7); MCH 26.9 pg (27.0-33.0); MCHC 32.8 % (32.0-36.0); MCV 82 fL (80-95); Platelet Count 243 10^3/uL (130-400); RDW 12.7 % (11.7-14.6); RDW-SD 38.5 fL; WBC 8.81 10^3/uL (4.4-10.8)
[2023-11-22 09:25] LABS: ALT 34 U/L (14-59); AST 13 U/L (15-37); Albumin 3.9 g/dL (3.4-5.0); Alkaline Phosphatase 170 U/L (46-116); Anion Gap 10.3 mmol/L (3-11); BUN 16 mg/dL (7-18); Bilirubin, Total 0.4 mg/dL (0.2-1.0); CO2 26.7 mmol/L (21.0-32.0); CREATININE 0.8 mg/dL (0.55-1.02); Calcium 9.4 mg/dL (8.5-10.1); Calculated LDL 120 mg/dL (<100); Chloride 103 mmol/L (98-107); Cholesterol 202 mg/dL (<200); Estimated GFR 89.15 (mL/min/1.73m2); Glucose 189 mg/dL (74-106); HDL Cholesterol 54 mg/dL (40-60); Magnesium 2.1 mg/dL (1.8-2.4); Sodium 140 mmol/L (136-145); TSH (W/Ref FT4) 0.58 uIU/mL (0.36-3.74); Total Protein 8.2 g/dL (6.4-8.2); Triglyceride 141 mg/dL (<150)
== END 2023-11-22 07:23 | disposition home or self-care (01) ==
LOC: LBO 07:23
PROVIDERS: PCP Nurse Practitioner Family; Visit Provider Nurse Practitioner Family
DX: Z00.00 Encounter for general adult medical examination without abnormal findings; I10 Essential (primary) hypertension; E11.9 Type 2 diabetes mellitus without complications; K21.00 Gastro-esophageal reflux disease with esophagitis, without bleeding; R79.89 Other specified abnormal findings of blood chemistry
CPT/HCPCS: 36415; 80053; 80061; 85027; 83735; 84443

== ENCOUNTER 2024-01-27 15:12 | Outpatient (REF) | payer OTHER, SELFPAY | END 2024-01-27 15:13 | disposition home or self-care (01) | LOC: LBN 15:12 | PROVIDERS: PCP Nurse Practitioner Family; Visit Provider Physician Assistant | DX: J02.9 Acute pharyngitis, unspecified (principal) | CPT/HCPCS: 87070 ==

== ENCOUNTER 2024-05-22 09:57 | Outpatient (CLI) | payer OTHER, SELFPAY ==
[2024-05-22 10:59] LABS: ESR 29 mm/hr (0-30)
[2024-05-22 11:41] LABS: Vitamin B12 357 pg/mL (193-986); Vitamin D 25 Total 13.5 ng/mL (30-100)
[2024-05-22 18:19] LABS: CRP, High Sensitivity 12.15 mg/L (See Note); Rheumatoid Factor <8.6 IU/mL (<12.0)
[2024-05-23 15:17] LABS: ANA Interpretation Negative (Negative)
== END 2024-05-22 09:58 | disposition home or self-care (01) ==
LOC: LBO 09:58
PROVIDERS: PCP Nurse Practitioner Family; Visit Provider Nurse Practitioner Family
DX: M25.50 Pain in unspecified joint (principal); K21.00 Gastro-esophageal reflux disease with esophagitis, without bleeding
CPT/HCPCS: 36415; 82306; 85652; 86141; 82607; 86038; 86431

== ENCOUNTER 2024-06-26 10:40 | Outpatient (CLI) | payer OTHER, SELFPAY ==
[2024-06-27 11:11] LABS: Lyme Ab w Rflx to Lyme Confirm Negative (Negative)
[2024-06-28 22:06] LABS: Anaplasma phagocytophilum Negative (Negative); B. miyamotoi PCR Negative (Negative); Babesia divergens/MO-1 Negative (Negative); Babesia duncani Negative (Negative); Babesia microti Negative (Negative); Ehrlichia chaffeensis Negative (Negative); Ehrlichia ewingii/canis Negative (Negative); Ehrlichia muris eauclairensis Negative (Negative)
== END 2024-06-26 10:41 | disposition home or self-care (01) ==
LOC: LBO 10:41
PROVIDERS: PCP Nurse Practitioner Family; Visit Provider Nurse Practitioner Family
DX: Z23 Encounter for immunization
CPT/HCPCS: 36415; 87798; 86618

== ENCOUNTER 2024-09-05 08:10 | Outpatient (CLI) | payer OTHER, SELFPAY ==
[2024-09-05 10:32] LABS: Hemoglobin A1C 7.7 % (<5.7)
== END 2024-09-05 08:11 | disposition home or self-care (01) ==
LOC: LBO 08:10
PROVIDERS: PCP Nurse Practitioner Family; Visit Provider Nurse Practitioner Family
DX: E11.9 Type 2 diabetes mellitus without complications (principal)
CPT/HCPCS: 36415; 83036

== ENCOUNTER 2025-01-23 08:59 | Outpatient (CLI) | payer OTHER, SELFPAY ==
[2025-01-23 08:18] LABS: Hemoglobin A1C 7.5 % (<5.7)
[2025-01-23 08:19] LABS: ALT 44 U/L (14-59); AST 21 U/L (15-37); Albumin 3.6 g/dL (3.4-5.0); Alkaline Phosphatase 155 U/L (46-116); Anion Gap 6.2 mmol/L (3-11); BUN 11 mg/dL (7-18); Bilirubin, Total 0.4 mg/dL (0.2-1.0); CO2 29.8 mmol/L (21.0-32.0); CREATININE 0.7 mg/dL (0.55-1.02); Calcium 9.1 mg/dL (8.5-10.1); Calculated LDL 106 mg/dL (<100); Chloride 103 mmol/L (98-107); Cholesterol 183 mg/dL (<200); Glucose 225 mg/dL (74-106); HDL Cholesterol 53 mg/dL (>or=50); Potassium 4.4 mmol/L (3.5-5.1); Sodium 139 mmol/L (136-145); Total Protein 8.1 g/dL (6.4-8.2); Triglyceride 124 mg/dL (<150)
== END 2025-01-23 09:00 | disposition home or self-care (01) ==
LOC: LBO 09:00
PROVIDERS: PCP Nurse Practitioner Family; Visit Provider Nurse Practitioner Family
DX: Z00.00 Encounter for general adult medical examination without abnormal findings (principal); I10 Essential (primary) hypertension; E11.9 Type 2 diabetes mellitus without complications; R79.89 Other specified abnormal findings of blood chemistry; K21.00 Gastro-esophageal reflux disease with esophagitis, without bleeding; L30.9 Dermatitis, unspecified
CPT/HCPCS: 36415; 80053; 80061; 83036

== ENCOUNTER 2025-06-21 12:39 | Outpatient (CLI) | payer OTHER, SELFPAY ==
[2025-06-21 12:56] LABS: Hemoglobin A1C 8.4 % (<5.7)
== END 2025-06-21 12:40 | disposition home or self-care (01) ==
LOC: LBO 12:40
PROVIDERS: PCP Nurse Practitioner Family; Visit Provider Nurse Practitioner Family
DX: E11.9 Type 2 diabetes mellitus without complications (principal)
CPT/HCPCS: 36415; 83036